=== PATIENT | female | born 1940 | race Caucasian/White ===

== ENCOUNTER 2023-05-12 05:55 | Day surgery (SDC) | payer OTHER, SELFPAY ==
--- NOTE | 2023-04-10 12:04 | CM ---
Patient is scheduled for an elective L TSA on 05/12/23- she is a same day patient. Spoke with patient prior to surgery. Introduced role of Orthopedic Navigator. Patient reports that she lives with alone in a two story home. There are two steps to
enter and patient has a first floor set up. Currently she functions independently. She does not use any DME. She has had [facility] services through [facility]. PCP is Dr. Vy Conrad.
Discussed orthopedic program and post surgical plans. Patient will return home when directed by surgeon. Reviewed MD follow up and transition to outpatient therapy. Patient is in agreement with tentative plan and states that her daughter, Erika,
will be staying with her and can assist if needed.
Patient will complete online education.
Plan: Orthopedic Navigator will be involved in the care of patient after surgery and will reassess discharge needs at that time.
[2023-04-20 12:31] VITALS: BMI 32.3
[2023-04-20 14:07] LABS: Hemoglobin 13.2 g/dL (12.0-16.0); Mean Corp Hgb Conc. 34.7 g/dL (33.0-37.0); Mean Corpuscular Hgb 31.7 pg (27.0-31.0); Mean Corpuscular Volume 91.3 fL (81.0-99.0); Mean Platelet Volume 9.2 fL (7.4-10.4); Platelet Count 303 10^3/uL (130-400); Red Blood Cell Count 4.16 10^6/uL (4.20-5.40); Red Cell Dist. Width 13.4 % (11.5-14.5); White Blood Cell Count 5.5 10^3/uL (4.8-10.8)
[2023-04-20 14:34] LABS: ALT (SGPT) 24 U/L (0-35); AST (SGOT) 32 U/L (14-36); Albumin 4.2 g/dl (3.5-5.0); Alkaline Phosphatase 70 U/L (38-126); Blood Urea Nitrogen 16 mg/dl (7-17); Calcium 9.5 mg/dl (8.4-10.2); Chloride 99 mmol/L (98-107); Estimated Creatinine Clearance 77 ml/min; Glucose 88 mg/dl (70-99); Potassium 4.5 mmol/L (3.5-5.1); Sodium 133 mmol/L (135-145); Total Bilirubin 0.9 mg/dl (0.2-1.3); Total Protein 7.1 g/dl (6.3-8.2); eGFR > 60.00
[2023-04-20 14:50] LABS: Glycohemoglobin (HgbA1c) 6.1 % (4.0-5.6)
[2023-04-20 15:13] LABS: Carbon Dioxide 25 mmol/L (22-30)
[2023-04-20 16:51] VITALS: BMI 32.3
[2023-05-12] VITALS (10 sets, daily range): BP systolic 118–170; BP diastolic 53–77
[2023-05-12] MEDS: CELEBREX 200 MG PO (06:40)
[2023-05-12] MEDS: NORMOSOL-R 1000 IV (06:44)
[2023-05-12] MEDS: TYLENOL 1000 MG PO (06:48)
[2023-05-12] MEDS: ANCEF 5 IV (11:32)
== END 2023-05-12 12:43 | disposition home or self-care (01) ==
LOC: SDS 05:55
PROVIDERS: ATTENDING PHYSICIAN Specialist; FAMILY PHYSICIAN Family Medicine; OTHER PHYSICIAN Internal Medicine Cardiovascular Disease; OTHER PHYSICIAN Physician Assistant
DX: M19.012 Primary osteoarthritis, left shoulder (principal)
CPT/HCPCS: 23472; 36415; 73020; 80053; 83036; 85027; 87070; C1713; C1776

== ENCOUNTER → 2024-03-27 13:40 | Outpatient (REF) | payer OTHER, SELFPAY | LOC: HWWDC 13:40 | PROVIDERS: ATTENDING PHYSICIAN Family Medicine | DX: Z12.31 Encounter for screening mammogram for malignant neoplasm of breast (principal) | CPT/HCPCS: 77063; 77067 ==

== ENCOUNTER 2024-04-12 06:26 | Day surgery (SDC) | payer OTHER, SELFPAY | END 2024-04-12 13:28 | disposition home or self-care (01) | LOC: GI 06:26 | PROVIDERS: ATTENDING PHYSICIAN Internal Medicine Gastroenterology | DX: Z12.11 Encounter for screening for malignant neoplasm of colon (principal); Z86.0101 Personal history of adenomatous and serrated colon polyps; K57.30 Diverticulosis of large intestine without perforation or abscess without bleeding | CPT/HCPCS: G0105 ==

== ENCOUNTER → 2024-10-02 13:46 | Outpatient (REF) | payer OTHER, SELFPAY | LOC: HWRAD 13:46 | PROVIDERS: ATTENDING PHYSICIAN Specialist; FAMILY PHYSICIAN Family Medicine | DX: M25.511 Pain in right shoulder (principal) | CPT/HCPCS: 73200 ==

== ENCOUNTER → 2024-11-01 09:23 | Outpatient (REF) | payer OTHER, SELFPAY | LOC: PET 09:23 | PROVIDERS: ATTENDING PHYSICIAN Family Medicine | DX: R91.1 Solitary pulmonary nodule (principal) | CPT/HCPCS: 78816; A9552 ==

== ENCOUNTER 2024-11-15 09:23 | Outpatient (REF) | payer OTHER, SELFPAY ==
[2024-11-15] VITALS (15 sets, daily range): BP systolic 67–169; BP diastolic 61–96
[2024-11-15 10:17] LABS: INR 0.98; PT 13.3 Sec (11.4-14.6)
== END 2024-11-15 15:34 | disposition home or self-care (01) ==
LOC: RADI 09:23
PROVIDERS: ATTENDING PHYSICIAN Internal Medicine Critical Care Medicine; FAMILY PHYSICIAN Family Medicine
DX: R91.1 Solitary pulmonary nodule (principal); D68.8 Other specified coagulation defects
CPT/HCPCS: 32408; 36415; 71045; 85610; 87015; 87070; 87102; 87116; 87176; 87205; 87206; 88305; 88333; 99152; 99153

== ENCOUNTER 2024-12-18 12:32 | Emergency (ER) | payer OTHER, SELFPAY ==
[2024-12-18 12:36] VITALS: BP 159/87
--- NOTE | 2024-12-18 13:14 | ED.GENMED ---
History of Present Illness
General
Chief Complaint: DVT/Possible Blood Clot
Source: patient
Exam Limitations: none
Time Seen by Provider: 12/18/24 12:54
Nursing documentation reviewed up to this point in time: agreed with
History of Present Illness
History of Present Illness:
84-year-old female presents with left leg swelling onset a week or 2 ago she is 3 to 4 weeks status post outpatient reverse total shoulder by Dr. Perea she recovered well no history of DVT PE, no pain at the surgical site no fever no chest pain or
shortness of breath she also having some cloudy urine, but no pain when she urinates though she does have chronic urinary incontinence does not believe that she had a catheter during her surgery but she is unclear does not have a chronic catheter,
she uses medications to prevent UTIs, states she has not had 1 in 7 or 8 years
Past History
Past History
ED Past Medical History: Other ( incontinence)
ED Past Surgical History: Orthopedic
Social History
Tobacco: Non-smoker
Alcohol: None
Drug: None
Living: with family
Employment: Retired
Phy Exam
Physical Exam
Physical Exam:
Physical Exam
General: no apparent distress, not acutely ill
Neck: No jaw
Heart: s1/s2 regular rate and rhythm, no murmur. equal radial pulses.
Lungs: no acute respiratory distress. clear bilaterally
Neuro: alert and oriented. no focal neurological deficits
Skin: no rash
Psychiatric: well kept. interactive and cooperative
Extremities: Asymmetric swelling of the left lower extremity no cellulitic
Course
Orders/Labs/Results
Orders:
Orders
12/18/24 13:09
US Periph Venous LOWER Ext LT Urgent
Comment:
Reason For Exam: swelling
12/18/24 13:47
Urinalysis Reflex To Culture Urgent
Date Specimen was Collected: 12/18/24
Time Specimen was Collected: 13:38
Urine Microscopic Reflex Cult Urgent
Urine Culture Urgent
DEVANTE Source: U
Specimen Description:
Date Specimen was Collected: 12/18/24
Time Specimen was Collected: 13:38
Abnormal Lab Results
12/18/24
13:47
Ur Occult Blood Reflex 2+ A
(Negative)
Leukocyte Esterase Rfl 3+ A
(Negative)
Urine WBC (Reflex) >100 A /HPF
(0-5)
Urine Bacteria (Reflex) Moderate A
(Negative)
Urine Albumin (Reflex) 2+ A
(Neg - Trace)
Vital Signs
Initial and Last Documented VS:
Initial Vital Signs
Temp Pulse Resp BP Pulse Ox
98.4 F 79 18 159/87 98
12/18/24 12:36 12/18/24 12:36 12/18/24 12:36 12/18/24 12:36 12/18/24 12:36
Last Documented Vital Signs
Temp Pulse Resp BP Pulse Ox
98.4 F 79 18 159/87 98
12/18/24 12:36 12/18/24 12:36 12/18/24 12:36 12/18/24 12:36 12/18/24 13:15
MDM/Problems Addressed
Differential Diagnosis Includes:
DVT nonspecific swelling no signs of cellulitis no signs of arterial insufficiency possible UTI
MDM/Problems Addressed:
Swollen leg, cloudy urine
Chronic conditions affecting care:
Urine incontinence
Acute Exacerbation and/or Progression of Chronic Illness:
Recent orthopedic surgery
*Radiology
Radiology exam reviewed: radiology read reviewed
*Pulse Oximetry
SaO2: 98
Oxygen Mode of Delivery: Room air
Patient hypoxic: no
*Critical Care Note
Total Time (30-74mins, 75-104mins- exclusive of procedures): Not Applicable
Update Note
Update Note:
2:40 PM update patient comfortable Doppler report reviewed with patient urinalysis pending
3 PM urinalysis noted urine culture pending reviewed with patient typically gets Cipro
ED Attending Note
-
Portions of this chart may have been created with voice recognition software.� Occasional wrong word or��sound alike� substitutions may have occurred due to the inherent limitations of voice recognition software.
Discharge Plan
Departure
Patient Disposition: Home (Routine Discharge)
Date of Disposition: 12/18/24
Time of Disposition: 15:00
Patient with high blood pressure during this ER visit?: No
Condition: Good
Discharge Problem:
Acute UTI, Leg swelling
Prescriptions:
No Action
Glucosamine-Chondroitin Complx 1 CAP capsule
1 cap PO BID
famotidine 40 MG tablet
40 mg PO DAILY
Oylzmivhy-Qyarpgond-Asnppol C 1 EACH tablet
4,200 mg PO DAILY
fexofenadine 180 mg Tablet
180 mg PO DAILY
rosuvastatin [Crestor] 5 mg Tablet
5 mg PO HS
omega-3 acid ethyl esters [Lovaza] 1 gram Capsule
1 cap PO BID
cholecalciferol (vitamin D3) [Vitamin D3] 50 mcg (2,000 unit) Tablet
50 mcg PO DAILY
Uribel 118-10-40.8-36 mg Capsule
1 tab PO BID
d-mannose Powder
1 ea PO BID
Prevagen
1 cap PO DAILY
hydromorphone [Dilaudid] 2 mg tablet
2 - 4 mg PO Q6H PRN (Reason: moderate-severe pain) Qty: 30 0RF
Rx Instructions:
1 tab for moderate pain, 2 for severe.
Dx total joint.
mupirocin 2 % ointment
1 applic intranasal BID Qty: 1 0RF
Patient Comments:
Patient administered this medication this morning @ 04:30.
Centrum Silver Women 8 mg iron-400 mcg-50 mcg Tablet
1 tab PO DAILY
docusate sodium [Colace] 100 mg capsule
100 mg PO BID Qty: 30 0RF
sennosides [senna] 8.6 mg tablet
17.2 mg PO BID Qty: 30 0RF
hydrochlorothiazide 25 MG tablet
25 mg PO DAILY Qty: 0 0RF
Rx Instructions:
HOLD IF systolic blood pressure <130 while on Dilaudid.
Referrals:
Atiya Santana MD [Family Provider, Family Practice]
Interventions
Interventions:
*Risk Screen - Suicide Last Done: 12/18/24 12:36
*General Assessment Last Done: 12/18/24 12:36
*ED COVID-19 Vaccine History Last Done: 12/18/24 13:54
*ED Influenza Vaccine History Last Done: 12/18/24 13:54
ED- Cardiac Assessment Last Done: 12/18/24 13:54
ED- Pulmonary Assessment Last Done: 12/18/24 13:54
ED-Peripheral Vascular Assessment Last Done: 12/18/24 13:54
ED-Skin Assessment Last Done: 12/18/24 13:54
Discharge Date and Time
Print Language: MALTESE
[2024-12-18 13:56] LABS: Urine Character Slightly Cloudy (Clear)
[2024-12-18 14:55] LABS: Urine Squamous Cell 0-2 /LPF (Few); Urine White Cell >100 /HPF (0-5)
[2024-12-18 14:56] LABS: Urine Red Blood Cell 0-2 /HPF (0-2)
[2024-12-18] MEDS: CIPRO 250 MG PO (15:26)
== END 2024-12-18 15:40 | disposition home or self-care (01) ==
LOC: EMR 12:32
PROVIDERS: EMERGENCY PHYSICIAN Emergency Medicine; FAMILY PHYSICIAN Family Medicine
DX: N39.0 Urinary tract infection, site not specified (principal); R22.42 Localized swelling, mass and lump, left lower limb
CPT/HCPCS: 99284; 81003; 81015; 87077; 87086; 93971